=== PATIENT | male | born 1960 | race Two or more races ===

== ENCOUNTER 2023-10-12 09:49 | Outpatient (CLI) | payer OTHER | END 2023-10-12 10:02 | disposition home or self-care (01) | LOC: RAD 09:49 | PROVIDERS: ATTEND Otolaryngology Otolaryngology/Facial Plastic Surgery | DX: G47.33 Obstructive sleep apnea (adult) (pediatric) (principal); R13.10 Dysphagia, unspecified; R09.81 Nasal congestion; J32.4 Chronic pansinusitis ==